=== PATIENT | female | born 1990 | race African-American/Black ===

== ENCOUNTER 2020-09-09 22:00 | Emergency (ER) | payer OTHER ==
[~2020-09-09] VITALS: Ht 160 cm; Wt 68.0 kg
[~2020-09-09 22:00] MED LIST: NAPROSYN500 MG PO; NORVASC5 MG PO; WELLBUTRIN XL150 MG PO
[2020-09-09] MEDS ORDERED: [UNRECOGNIZED DRUG - OTHER] PO (22:15)
[2020-09-09] MEDS ORDERED: FLEXERIL PO (23:58)
[2020-09-10 00:35] VITALS: BP 128/67
== END 2020-09-10 00:35 | disposition home or self-care (01) ==
LOC: ER 22:00
DX: S93.602A Unspecified sprain of left foot, initial encounter (principal); S93.402A Sprain of unspecified ligament of left ankle, initial encounter; I10 Essential (primary) hypertension; Z79.899 Other long term (current) drug therapy; W10.9XXA Fall (on) (from) unspecified stairs and steps, initial encounter; Y93.89 Activity, other specified; Y92.098 Other place in other non-institutional residence as the place of occurrence of the external cause; Y99.8 Other external cause status